=== PATIENT | female | born 1945 | race Caucasian/White ===

== ENCOUNTER → 2016-11-21 | Outpatient (CLI) | payer BC ==
[~2016-11-21] MED LIST: ASPI1TAB83 PO; CALC600T9 PO; GLUCTAB7 PO; METO1TAB31 PO; OMEP20CA9 PO; SIMV20TA2 PO; TRAZ50TA35 PO
--- NOTE | 2016-11-22 15:21 | MAMMOGRAPHY REPORT ---
BILATERAL DIGITAL SCREENING MAMMOGRAM WITH CAD: 11/21/2016 CLINICAL HISTORY: Routine screening. TECHNIQUE: Current study was also evaluated with a Computer Aided Detection (CAD) system. Bilateral CC and MLO views were obtained. COMPARISON: Comparison is made to exams dated: 11/18/2015 mammogram, 11/15/2014 mammogram, 11/12/2013 mamm ogram, 11/11/2012 mammogram, 11/01/2011 mammogram, and 10/31/2010 mammogram - [facility] BREAST COMPOSITION: The tissue of both breasts is heterogeneously dense, which may obscure small mas ses. FINDINGS: There is a nodular 9 mm asymmetry seen within the left superior breast middle depth on the MLO view only, as well as a nodular 8 mm asymmetry seen along the posterior nipple line in the right breast on the MLO view only, which may represent normal overlapping fibroglandular tissue although s pot compression tomosynthesis views and possible breast ultrasound are recommended for further evalua tion. The remainder of both breasts are stable compared to prior exams, without suspicious masses, calcific ations, or areas of architectural distortion noted. Bilateral benign-appearing calcifications are no t significantly changed. IMPRESSION: ACR BI-RADS CATEGORY 0: INCOMPLETE EVALUATION: NEED ADDITIONAL IMAGING EVALUATION Bilateral breast asymmetries, for which additional imaging evaluation is recommended. The patient wi ll be called to schedule an appointment. Approximately 10% of breast cancers are not detected with mammography. A negative mammographic report should not delay biopsy if a clinically suggestive mass is present. Archana Davila M.D. ah/:11/21/2016 16:12:02 Napper Grinder: Bobby DEAN(Geovanny)(M), [facility] letter sent: Addl Imaging 0 BI-RADS Code: ACR BI-RADS Category 0: Incomplete Evaluation: Need Additional Imaging Evaluation
== END | disposition home or self-care (01) ==
LOC: C.MAMM 10:42
PROVIDERS: ATTEND Family Medicine
DX: Z12.31 Encounter for screening mammogram for malignant neoplasm of breast (principal)

== ENCOUNTER → 2016-12-06 | Outpatient (CLI) | payer BC ==
--- NOTE | 2016-12-06 13:24 | MAMMOGRAPHY REPORT ---
BILATERAL DIGITAL DIAGNOSTIC MAMMOGRAM TOMOSYNTHESIS AND TARGETED BILATERAL ULTRASOUND: 12/06/2016 CLINICAL HISTORY: Callback from screening mammogram for bilateral asymmetries. TECHNIQUE: Breast tomosynthesis in addition to standard 2D mammography was performed. Spot compress ion bilateral CC and MLO 2-D and tomosynthesis images were obtained. COMPARISON: Comparison is made to exams dated: 11/21/2016 mammogram, 11/18/2015 mammogram, 11/15/2014 amilcar mogram, 11/12/2013 mammogram, 11/11/2012 mammogram, and 11/01/2011 mammogram - [facility] BREAST COMPOSITION: The tissue of both breasts is heterogeneously dense, which may obscure small mas ses. FINDINGS: The previously described asymmetry in the left superior breast and right breast along the posterior nipple line on the MLO view efface on the additional spot compression views, with no suspic ious masses or architectural distortion seen in these regions on the tomosynthesis images. Targeted ultrasound was performed of the right retroareolar, 3:00, and 9:00 breast in the region of t he mammographic asymmetry seen on one view only, as well as the left superior breast in the region of the left breast asymmetry. Sonographically normal tissue is seen in these regions, without evidence of a mass or other suspicious sonographic abnormality. IMPRESSION: ACR BI-RADS CATEGORY 2: BENIGN, TARGETED ULTRASOUND ACR BI-RADS CATEGORY 2: BENIGN Bilateral breast asymmetries efface on the additional views, without corresponding sonographic abnorm alities evident. Findings are benign and compatible with normal fibroglandular tissue. There is no mammographic or targeted sonographic evidence of malignancy. A 1 year screening mammogram is recommen ded. The patient has been verbally notified of the results. Approximately 10% of breast cancers are not detected with mammography. A negative mammographic report should not delay biopsy if a clinically suggestive mass is present. Archana Davila M.D. /:12/06/2016 10:01:17 Production Sanitizer: Lala DEAN(Geovanny)(M), [facility] letter sent: Normal 1/2 BI-RADS Code: ACR BI-RADS Category 2: Benign Ultrasound BI-RADS: ACR BI-RADS Category 2: Benign
== END | disposition home or self-care (01) ==
LOC: C.MAMM 09:18
PROVIDERS: ATTEND Family Medicine
DX: N64.89 Other specified disorders of breast (principal)

== ENCOUNTER → 2017-06-14 | Outpatient (CLI) | payer BC ==
[~2017-06-14] MED LIST changes: +METO-478 PO; -METO1TAB31 PO
--- NOTE | 2017-06-14 12:36 | DIAGNOSTIC IMAGING REPORT ---
RIGHT KNEE 2 VIEWS CLINICAL HISTORY: Right knee pain. FINDINGS: AP and lateral views of the right knee are obtained. No prior studies are available for comparison at the time of dictation. The skeletal structures are osteopenic. No fracture is seen. Mild degenerative narrowing is identified at the patellofemoral articulation. No joint effusion is seen. The overlying soft tissues are within normal limits. IMPRESSION: Osteopenia with no acute bony abnormality identified in the right knee. Electronically signed by: Lavelle Dong M.D. 06/14/2017 12:34 PM Dictated Date/Time: 06/14/2017 12:33 PM
--- NOTE | 2017-06-14 12:39 | DIAGNOSTIC IMAGING REPORT ---
R HIP UNILATERAL 2 VIEWS CLINICAL HISTORY: Right hip pain COMPARISON: None. DISCUSSION: No fractures or dislocations are visualized. There are no erosive or destructive changes. The joint space appears well-preserved for age. Degenerative changes are present within the lower lumbar spine. IMPRESSION: 1. 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 Otherwise unremarkable right hip for age Electronically signed by: Aldo Ryan M.D. 06/14/2017 12:37 PM Dictated Date/Time: 06/14/2017 12:36 PM
== END | disposition home or self-care (01) ==
LOC: C.RAD1850 12:17
PROVIDERS: ATTEND Nurse Practitioner Family
DX: M85.861 Other specified disorders of bone density and structure, right lower leg (principal)